=== PATIENT | female | born 1965 | race Caucasian/White ===

== ENCOUNTER 2018-08-06 05:53 | Day surgery (SDC) | payer OTHER ==
[~2018-08-06] VITALS: Ht 154.9 cm; Wt 75.8 kg
[~2018-08-06 05:53] MED LIST: EPIPEN0.3 MG/0.3 IM; VITAMIN B12 PO; VITAMIN C PO
--- NOTE | 2018-08-06 06:51 | NUR ---
History, Chart, Medications and Allergies reviewed before start of procedure. Patient confirms NPO status and agrees with scheduled surgery. Patient reports completing Chlorhexadine shower X2 prior to admission to hospital. Patient States Post-Procedure ride home has been arranged with her .
== END 2018-08-06 09:40 | disposition home or self-care (01) ==
LOC: ORSCMMR 05:53 → ORD 12:30
PROVIDERS: Surgery
PROC: 0JH60WZ Insertion of Totally Implantable Vascular Access Device into Chest Subcutaneous Tissue and Fascia, Open Approach (ICD-10-PCS; principal; 2018-08-06 07:30)
DX: C50.812 Malignant neoplasm of overlapping sites of left female breast (principal); Z17.1 Estrogen receptor negative status [ER-]; E66.9 Obesity, unspecified; Z68.30 Body mass index [BMI] 30.0-30.9, adult
CPT/HCPCS: 77001; C1788; J0690; J1100; J1642; J2250; J2405; J3010; J7120

== ENCOUNTER 2018-12-31 10:02 | Day surgery (SDC) | payer OTHER ==
[~2018-12-31 10:02] MED LIST changes: +DEXA4 PO; +OLAN10 PO; +ZUPLENZ4 MG PO
== END 2018-12-31 22:49 | disposition home or self-care (01) ==
LOC: MOI US 10:02
DX: C50.812 Malignant neoplasm of overlapping sites of left female breast (principal)
CPT/HCPCS: 19281

== ENCOUNTER 2019-01-03 09:46 | Day surgery (SDC) | payer OTHER ==
[~2019-01-03] VITALS: Ht 154.9 cm; Wt 79.2 kg
--- NOTE | 2019-01-03 10:50 | NUR ---
INTO [facility]. Ambulatory in Day Surgery History, Chart, Medications and Allergies reviewed before start of procedure.Lungs clear T/O to Auscultation. Patient States Post-Procedure ride home has been arranged.
--- NOTE | 2019-01-03 14:50 | NUR ---
INTO [facility]. PT AMBULATED WITH STANDBY ASSIST TO BRP. NO DIZZINESS OR NAUSEA.LEFT CHEST 4X4 C/D/I. SOME BRUISING NOTED. PT STATES THAT HER PAIN LEVEL IS 2/10. BREAST BINDER IN PLACE.
--- NOTE | 2019-01-03 15:46 | NUR ---
Patient up to Ambulate independently. Gait steady. Dressing to procedure site clean, dry, intact with no visible drainage, swelling, erythema or bruising noted. Dressing to procedure site clean, dry, intact with no visible drainage, swelling, erythema or bruising noted. Discharged via wheelchair to private car for ride home.
== END 2019-01-03 15:49 | disposition home or self-care (01) ==
LOC: RAD 09:46 → ORSCMMR 09:49 → RAD 10:30
PROVIDERS: Surgery
PROC: 0HBU0ZZ Excision of Left Breast, Open Approach (ICD-10-PCS; principal; 2019-01-03 12:00)
PROC: 07B60ZZ Excision of Left Axillary Lymphatic, Open Approach (ICD-10-PCS; principal; 2019-01-03 12:00)
DX: C50.812 Malignant neoplasm of overlapping sites of left female breast (principal); Z79.899 Other long term (current) drug therapy; Z91.030 Bee allergy status
CPT/HCPCS: 38792; 76098; 88307; 88342; A9270-GY; A9520; J0690; J1100; J2250; J2405; J2704; J3010; J7120; Q9968

== ENCOUNTER 2019-09-15 06:34 | Day surgery (SDC) | payer OTHER ==
[~2019-09-15] VITALS: Ht 154.9 cm; Wt 81.9 kg
[~2019-09-15 06:34] MED LIST changes: +ANTACID 1000-21 EACH; +ASCO500 PO; +CALCIUM 600 +1 EA11; +CAPE500; +EPIPEN 2-P0.3 MG/0.3 IM; +REGLAN10 MG PO; +VITAMIN B122500 MCG; +VITAMIN D350 MCG PO; +Xeloda150 MG PO
== END 2019-09-15 08:43 | disposition home or self-care (01) ==
LOC: ORSCSDS 06:34
PROVIDERS: Surgery
PROC: 0DJD8ZZ Inspection of Lower Intestinal Tract, Via Natural or Artificial Opening Endoscopic (ICD-10-PCS; principal; 2019-09-15 08:00)
DX: Z12.11 Encounter for screening for malignant neoplasm of colon (principal); K57.30 Diverticulosis of large intestine without perforation or abscess without bleeding; E66.9 Obesity, unspecified; I10 Essential (primary) hypertension; Z68.34 Body mass index [BMI] 34.0-34.9, adult; Z79.899 Other long term (current) drug therapy
CPT/HCPCS: J0330; J0461; J2405; J2704; J7120

== ENCOUNTER → 2021-04-24 | Outpatient (CLI) | payer BC | END | disposition home or self-care (01) | LOC: LAB SHORT 15:46 → LAB 15:46 | DX: D22.5 Melanocytic nevi of trunk (principal); D48.5 Neoplasm of uncertain behavior of skin | CPT/HCPCS: 88305 ==